=== PATIENT | female | born 1990 | race Caucasian/White ===

== ENCOUNTER 2016-11-30 23:58 | Observation (INO) | payer SELFPAY ==
[2016-12-01] MEDS ORDERED: KLONOPIN1 MG PO (05:22)
[2016-12-01] MEDS ORDERED: ADDERALL XR 1515 M1 PO ×2 (05:24→05:26)
--- NOTE | 2016-12-01 05:45 | NUR ---
PT ARRIVED TO ROOM 220 VIA STRETCHER WITH EYES CLOSED EASILY TO AROUSED WHEN NAME IS CALLED. RESP EVEN AND UNLABORED WITH NO DISTRESS NOTES. CAN VOICE NEEDS AND WANTS. ASSESSMENT COMPLETED. RIGHT ARM REMAIN IN SLING AT THIS TIME. WILL CONTINUE TO OBSERVE FOR NEEDS. C/L IN REACH AT BEDSIDE.
[2016-12-01 06:42] LABS: BASOPHILS 0.1 % (0.0-2.0); EOSINOPHILS 1.5 % (0-7); HEMATOCRIT 38.6 % (36.0-48.0); HEMOGLOBIN 12.4 g/dL (12-16); IMMATURE GRANULOCYTES 0.2 % (0-5); MCH 31.4 pg (26.0-34.0); MCHC 32.1 g/dL (31.0-37.0); MCV 97.7 fL (80.0-100.0); MONOCYTES 7.7 % (2-11); NEUTROPHILS 75.5 % (40-80); PLATELET COUNT 253 10x3/uL (130-400); RBC 3.95 10x6/uL (4.00-5.40); RDW 12.8 % (11.5-14.5); WBC 11.1 10x3/uL (4.8-10.8)
[2016-12-01 06:45] LABS: CALC OSMOLALITY 291 mosm/kg (275-300); CALCIUM 8.5 mg/dL (8.5-10.1); CARBON DIOXIDE 28.8 mmol/L (21.0-32.0); CHLORIDE - SERUM 110 mmol/L (98-107); CREATININE - SERUM 0.7 mg/dL (0.6-1.3); GLUCOSE 114 mg/dL (74-106); MAGNESIUM - SERUM 2.7 mg/dL (1.8-2.4); POTASSIUM - SERUM 4.3 mmol/L (3.5-5.1); SODIUM 145 mmol/L (136-145); UREA NITROGEN 17 mg/dL (7-18); eGFR NON AFRICAN AMERICAN > 90 mL/min (90-120)
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
[2016-12-01 07:57] VITALS: BP 109/69
--- NOTE | 2016-12-01 08:10 | NUR ---
PATIENT IN BED RESTING WITH EYES CLOSED. RESPIRATIONS EVEN AND UNLABORED. SCHEDULED MEDICATION ADMINISTERED. SIDE RAILS UP X2. BED IN LOW POSITION. CALL LIGHT AND STATISTICAL METHODS PROFESSOR BUTTON IN REACH.
--- NOTE | 2016-12-01 09:00 | NUR ---
RIGHT ARM ELEVATED ON PILLOW. ICE PACK IN PLACE. CALL LIGHT IN REACH. BED IN LOW POSITION.
[2016-12-01] MEDS ORDERED: HYDROCODONE-APA1 TAB PO (11:13)
--- NOTE | 2016-12-01 11:15 | NUR ---
DAM WORKER D/C PER ORDER. NORCO ADMINISTERED PER PRN ORDER. EXPLAINED TO PATIENT. ORAL PAIN MEDICATION WOULD BE USED AND SHE WOULD HAVE TO ASK FOR IT WHEN NEEDED. STATES UNDERSTANDING.
[2016-12-01 12:12] VITALS: BP 112/79
--- NOTE | 2016-12-01 12:55 | NUR ---
PATIENT OFF FLOOR TO CT VIA BED
--- NOTE | 2016-12-01 13:20 | NUR ---
PATIENT BACK TO ROOM VIA BED
--- NOTE | 2016-12-01 14:30 | NUR ---
SPLINT PLACED ON RIGHT ARM PER ORDERS.
--- NOTE | 2016-12-01 15:50 | NUR ---
PATIENT IN LOW LOPEZ POSITION RESTING QUIETLY WITH EYES CLOSED. WAKES EASY. IV TO LEFT HAND D/C WITH CATH TIP INTACT. SITE COVERED WITH GAUZE AND BANDAID.
--- NOTE | 2016-12-01 17:55 | NUR ---
ALERT IN BED TALKING ON PHONE. NO SIGNS OF DISTRESS NOTED. BED IN LOW POSITION. SIDE RAILS UP X2. CALL LIGHT IN REACH.
--- NOTE | 2016-12-01 18:20 | NUR ---
D/C TEACHING AND PRESCRIPTION FOR NORCO PROVIDED. PATIENT STATES UNDERSTANDING. DENIES QUESTIONS. D/C HOME WITH FRIEND. TRANSFERRED DOWNSTAIRS VIA WHEELCHAIR WITH STAFF
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
== END 2016-12-01 18:21 | disposition home or self-care (01) ==
LOC: D.ER 23:58 → D.MS 12-01 04:50 → OBSVTIME 12-01 04:50 → D.MS 12-01 18:21
PROVIDERS: Surgery; ADMIT Family Medicine
DX: S52.021A Displaced fracture of olecranon process without intraarticular extension of right ulna, initial encounter for closed fracture (principal); S52.121A Displaced fracture of head of right radius, initial encounter for closed fracture; W03.XXXA Other fall on same level due to collision with another person, initial encounter

== ENCOUNTER 2016-12-10 05:13 | Day surgery (SDC) | payer SELFPAY ==
[2016-12-09 16:34] LABS: HEMATOCRIT 40.2 % (36.0-48.0); HEMOGLOBIN 13.4 g/dL (12-16); MCH 31.8 pg (26.0-34.0); MCHC 33.3 g/dL (31.0-37.0); MCV 95.3 fL (80.0-100.0); MEAN PLATELET VOLUME 9.6 fL (7.4-10.4); RBC 4.22 10x6/uL (4.00-5.40); RDW 12.6 % (11.5-14.5)
[~2016-12-10] VITALS: Ht 170.2 cm; Wt 82.6 kg
[~2016-12-10 05:13] MED LIST: ADDERALL XR 1515 M1 PO; HYDROCODONE-APA1 TAB PO; KLONOPIN1 MG PO
[2016-12-10 08:32] VITALS: BP 134/90; Ht 170.2 cm; Wt 82.6 kg
[2016-12-10] MEDS ORDERED: HYDROCODONE-APA1 TAB PO (11:48)
--- NOTE | 2016-12-10 12:14 | NUR ---
RT ARM IN SLING ON ADMIT
--- NOTE | 2016-12-10 13:06 | NUR ---
1245- FULL LIQUIDS TOLERATED. VSS. 1250- PT UP OOB TO BR, VOIDED WITHOUT DIFFICULTLY. RIGHT SLING READJUSTED WHEN BACK TO BED, ELEVATED WITH ICE APPLIED 1300- LEFT WRIST IV D/C'D, PT TOLERATED. IV CATHETER INTACT. RIGHT ARM WITHOUT PAIN (BLOCKED). WILL CONTINUE TO MONITOR.
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
== END 2016-12-10 13:15 | disposition home or self-care (01) ==
LOC: D.OPS 05:13 → D.PAN 07:00 → D.OPS 07:00
PROVIDERS: Anesthesiology
DX: S52.021A Displaced fracture of olecranon process without intraarticular extension of right ulna, initial encounter for closed fracture (principal); S52.121A Displaced fracture of head of right radius, initial encounter for closed fracture